=== PATIENT | female | born 1950 | race Caucasian/White ===

== ENCOUNTER → 2016-12-26 | Outpatient (CLI) | payer BC ==
[~2016-12-26] MED LIST: ALEVE 220MG220 MG PO; ALLEGRA 180MG180 MG PO; AMITRIPTYLINE H10 M1 PO; ATIVAN 0.50.5 MG/TAB PO; AZO-CRANBERRY450 MG PO; CALCIUM PO; CALCIUM-500 5001 CTB PO; CINNAMON500 MG PO; DIOVAN 80MG80 MG PO; DIOVAN PO; DOMPERIDONE1 POW PO; FLONASE NASAL S16 GM NS; HYOMAX PO; LEVBID0.375 MG PO; MAGNESIUM200 MG PO; METFORMIN PO; MUCINEX 60600 MG/TA1 PO; MULTIPLE VITAMI1 CAP PO; NORCO 325 MG-51 TAB PO; OMEGA-3 FISH1000 MG PO; PHENERGAN 25 TA25 MG PO; PRILOSEC 20MG20 MG PO; PROBIOTIC FORMU1 CAP PO; SLIPPERY ELM PO; THE MEDICINE S200 M2 PO; VITAMIN B COMPL1 T16 PO; WHITE WILLOW BARK PO; ZOCOR 20MG20 MG PO; ZOFRAN ODT4 MG PO
== END ==
LOC: MC.RAD 09:00
DX: Z12.31 Encounter for screening mammogram for malignant neoplasm of breast (principal)

== ENCOUNTER → 2017-12-27 | Outpatient (CLI) | payer BC | LOC: MC.RAD 10:30 | DX: Z12.31 Encounter for screening mammogram for malignant neoplasm of breast (principal) ==

== ENCOUNTER → 2018-07-29 | Outpatient (CLI) | payer BC | LOC: COL.RAD 10:19 | DX: K66.8 Other specified disorders of peritoneum (principal) ==

== ENCOUNTER → 2019-01-06 | Outpatient (CLI) | payer BC | LOC: MC.RAD 01-02 13:45 | DX: Z12.31 Encounter for screening mammogram for malignant neoplasm of breast (principal) ==

== ENCOUNTER → 2020-07-13 | Outpatient (CLI) | payer MEDICARE | LOC: MC.RAD 10:05 | DX: Z12.31 Encounter for screening mammogram for malignant neoplasm of breast (principal); Z78.0 Asymptomatic menopausal state ==

== ENCOUNTER → 2021-08-01 | Outpatient (CLI) | payer MEDICARE | LOC: MC.RAD 10:22 | DX: Z12.31 Encounter for screening mammogram for malignant neoplasm of breast (principal) ==

== ENCOUNTER → 2022-01-18 | Outpatient (CLI) | payer MEDICARE | LOC: COL.RAD 12:32 | DX: M51.16 Intervertebral disc disorders with radiculopathy, lumbar region (principal); M47.26 Other spondylosis with radiculopathy, lumbar region; M43.16 Spondylolisthesis, lumbar region ==

== ENCOUNTER → 2023-08-23 | Outpatient (CLI) | payer MEDICARE | LOC: CANSCHCLI → MC.RAD 09:44 | DX: Z12.31 Encounter for screening mammogram for malignant neoplasm of breast (principal) ==